=== PATIENT | female | born 1950 | race Caucasian/White ===

== ENCOUNTER 2017-10-30 00:35 | Emergency (ER) | payer MEDICARE, BC ==
[2017-10-30] MEDS ORDERED: Sodium Chloride 0.9% 10 ML Syringe FLUSH PRN (00:47)
[2017-10-30] MEDS ORDERED: Ondansetron 4 MG/2 ML SDV IVPUSH ONE (00:47)
[2017-10-30] MEDS ORDERED: Sodium Chloride 0.9% 1,000 ML IV ONE (00:47)
[2017-10-30] MEDS ORDERED: dimenhyDRINATE 50 MG Tab PO ONE (01:07)
[2017-10-30] MEDS ORDERED: Meclizine 25 MG Tab PO ONE (01:07)
[2017-10-30 01:36] LABS: CHLORIDE,CL 102 mmol/L (98-107); SODIUM,NA 136 mmol/L (136-145)
--- NOTE | 2017-10-30 01:44 | EDM.PDOC ---
ED HPI GENERAL MEDICAL PROBLEM - General Chief Complaint: General Stated Complaint: Dizziness, N/V, recent pneumonia Time Seen by Provider: 10/30/17 00:45 Source of Information: Reports: Patient History Limitations: Reports: No Limitations - History of Present Illness INITIAL COMMENTS - FREE TEXT/NARRATIVE: Patient presents with complaints of dizziness and possible dehydration. She no longer has the symptoms on presentation to the ED. She states she does have these spells on occasions. She has no complaints of headache, chest pain or pressure, SOB, abdominal pain, nausea or vomiting, no blood in urine or stool and is having regular voiding and bowel habits Onset: Today Duration: Intermittent shoulder, neck Pain Score (Numeric/FACES): 4 - Related Data Allergies Allergy/AdvReac Type Severity Reaction Status Date / Time codeine Allergy Cannot Verified 10/30/17 00:44 Remember iodine Allergy Cannot Verified 10/30/17 00:44 Remember Home Meds: Home Meds Calcium Citrate/Vitamin D3 [Calcium Citrate + D] 2 tab PO DAILY 10/30/17 [ History] Cetirizine [ZyrTEC] 10 mg PO DAILY 10/30/17 [History] Citalopram Hydrobromide [Celexa] 20 mg PO DAILY 10/30/17 [History] Fluticasone/Salmeterol [Advair 100-50] 1 puff INH BID 10/30/17 [History] Montelukast [Singulair] 10 mg PO DAILY 10/30/17 [History] Omeprazole 20 mg PO DAILY 10/30/17 [History] Ranitidine HCl [Ranitidine] 300 mg PO BEDTIME 10/30/17 [History] buPROPion [buPROPion XL] 150 mg PO BEDTIME 10/30/17 [History] ED ROS GENERAL - Review of Systems Review Of Systems: See Below Constitutional: Reports: No Symptoms HEENT: Reports: No Symptoms Respiratory: Reports: No Symptoms Cardiovascular: Reports: No Symptoms Endocrine: Reports: No Symptoms GI/Abdominal: Reports: No Symptoms : Reports: No Symptoms Musculoskeletal: Reports: No Symptoms Skin: Reports: No Symptoms Neurological: Reports: No Symptoms Psychiatric: Reports: No Symptoms Hematologic/Lymphatic: Reports: No Symptoms Immunologic: Reports: No Symptoms ED EXAM, GENERAL - Physical Exam Exam: See Below Exam Limited By: No Limitations General Appearance: Alert, WD/WN, No Apparent Distress Eye Exam: Bilateral Eye: EOMI, Normal Inspection, PERRL Ears: Normal External Exam, Normal Canal, Hearing Grossly Normal, Normal TMs Nose: Normal Inspection, Normal Mucosa, No Blood Throat/Mouth: Normal Inspection, Normal Lips, Normal Teeth, Normal Gums, Normal Oropharynx, Normal Voice, No Airway Compromise Head: Atraumatic, Normocephalic Neck: Normal Inspection, Supple, Non-Tender, Full Range of Motion Respiratory/Chest: No Respiratory Distress, Lungs Clear, Normal Breath Sounds, No Accessory Muscle Use, Chest Non-Tender Cardiovascular: Normal Peripheral Pulses, Regular Rate, Rhythm, No Edema, No Gallop, No JVD, No Murmur, No Rub GI/Abdominal: Normal Bowel Sounds, Soft, Non-Tender, No Organomegaly, No Distention, No Abnormal Bruit, No Mass Back Exam: Normal Inspection, Full Range of Motion, NT Extremities: Normal Inspection, Normal Range of Motion, Non-Tender, Normal Capillary Refill, No Pedal Edema Neurological: Alert, Oriented, CN II-XII Intact, Normal Cognition, Normal Gait, Normal Reflexes, No Motor/Sensory Deficits Psychiatric: Normal Affect, Anxious Skin Exam: Warm, Dry, Intact, Normal Color, No Rash Lymphatic: No Adenopathy Course - Vital Signs Last Recorded V/S: Last Vital Signs Temp 36.4 C 10/30/17 00:35 Pulse 62 10/30/17 02:25 Resp 16 10/30/17 02:25 BP 124/68 10/30/17 02:25 Pulse Ox 96 10/30/17 00:35 - Orders/Labs/Meds Labs: Laboratory Tests 10/30/17 10/30/17 Range/Units 00:55 00:55 WBC 4.4 (4.0-10.0) x10^3/uL RBC 4.66 (4.00-5.50) x10^6/uL Hgb 13.4 (12.0-16.0) g/dL Hct 41.1 (33.0-47.0) % MCV 88.2 (78.0-93.0) fL MCH 28.8 (26.0-32.0) pg MCHC 32.6 (32.0-36.0) g/dL RDW Coeff of Nadja 14.9 (10.0-15.0) % Plt Count 188 (130-400) x10^3/uL Add Manual Diff Yes Neutrophils % (Manual) 75 (50-80) % Band Neutrophils % 3 (0-6) % Lymphocytes % (Manual) 19 L (25-50) % Eosinophils % (Manual) 3 (0-4) % Platelet Estimate Adequate Sodium 136 (136-145) mmol/L Potassium 3.6 (3.5-5.1) mmol/L Chloride 102 (98-107) mmol/L Carbon Dioxide 23 (21-32) mmol/L BUN 20 H (7-18) mg/dL Creatinine 0.9 (0.55-1.02) mg/dL Est Cr Clr Drug Dosing 56.78 mL/min Estimated GFR (MDRD) > 60 Glucose 134 H (74-106) mg/dL Calcium 8.9 (8.5-10.1) mg/dL Corrected Calcium 9.70 (8.5-10.1) mg/dL Total Bilirubin 1.0 (0.2-1.0) mg/dL AST 40 H (15-37) U/L ALT 57 (14-59) U/L Alkaline Phosphatase 89 (46-116) U/L Total Protein 7.2 (6.4-8.2) g/dL Albumin 3.0 L (3.4-5.0) g/dL Globulin 4.2 Albumin/Globulin Ratio 0.71 Meds: Medications Discontinued Medications Generic Name Dose Route Start Last Admin Trade Name Freq PRN Reason Stop Dose Admin Dimenhydrinate 50 mg 10/30/17 01:07 10/30/17 01:15 Driminate PO 10/30/17 01:08 50 mg ONETIME ONE Administration Sodium Chloride 1,000 mls @ 999 mls/hr 10/30/17 00:47 10/30/17 00:55 Normal Saline IV 10/30/17 01:47 999 mls/hr ONETIME ONE Administration Meclizine HCl 25 mg 10/30/17 01:07 10/30/17 01:53 Antivert PO 10/30/17 01:08 25 mg ONETIME ONE Administration Ondansetron HCl 4 mg 10/30/17 00:47 10/30/17 01:00 Zofran IVPUSH 10/30/17 00:48 4 mg ONETIME ONE Administration Sodium Chloride 10 ml 10/30/17 00:47 Saline Flush FLUSH ASDIRECTED PRN Keep Vein Open Departure - Departure Time of Disposition: 03:30 Disposition: Home, Self-Care 01 Condition: Good Clinical Impression: Dizziness, Dehydration - Discharge Information Instructions: Dehydration, Adult, [id number], Dizziness, [id number] Referrals: PCP,Unobtain [Primary Care Provider] - Forms: ED Department Discharge Additional Instructions: Stay well hydrated Try to have some dramamine at home to take if you get more dizzy spells Follow up with your primary provider if you continue to have bouts of dizziness Please call us with any questions or concerns in the meantime - Problem List & Annotations (1) Dehydration SNOMED Code(s): 73538130 Code(s): E86.0 - DEHYDRATION Status: Acute Priority: Low (2) Dizziness SNOMED Code(s): 522506958 Code(s): R42 - DIZZINESS AND GIDDINESS Status: Acute Priority: Low - Problem List Review Problem List Initiated/Reviewed/Updated: Yes - Assessment/Plan Assessment:: dizziness dehydration Plan: Stay well hydrated Try to have some dramamine at home to take if you get more dizzy spells Follow up with your primary provider if you continue to have bouts of dizziness Please call us with any questions or concerns in the meantime
[2017-10-30 03:08] VITALS: BP 124/68
== END 2017-10-30 02:30 | disposition home or self-care (01) ==
LOC: VM.ED 00:35
DX: E86.0 Dehydration (principal); R42 Dizziness and giddiness; Z88.5 Allergy status to narcotic agent; Z91.048 Other nonmedicinal substance allergy status; Z79.899 Other long term (current) drug therapy
CPT/HCPCS: 36415; 80053; 85025; 96361; 96374; 99283-GF; 99284; A9270-GY; J2405; J7030

== ENCOUNTER 2018-02-22 12:19 | Emergency (ER) | payer MEDICARE, BC ==
--- NOTE | 2018-02-22 12:33 | EDM.PDOC ---
ED HPI GENERAL MEDICAL PROBLEM - General Chief Complaint: Eye Problems Stated Complaint: RIGHT RED EYE Time Seen by Provider: 02/22/18 12:23 Source of Information: Reports: Patient, RN, RN Notes Reviewed History Limitations: Reports: No Limitations - History of Present Illness INITIAL COMMENTS - FREE TEXT/NARRATIVE: Patient presents to the ED at [facility] complaining of a FB sensation to the right eye. Patient states she was at the park yesterday and thought maybe she "got something into my right eye." Patient denies any visual field disturbances. No previous right eye injury or trauma. Patient states she has a green/yellow drainage. She does complain of some right eye irritation. She has some swelling around the right eye. Onset Date: 02/21/18 - Related Data Allergies Allergy/AdvReac Type Severity Reaction Status Date / Time codeine Allergy Cannot Verified 10/30/17 00:44 Remember iodine Allergy Cannot Verified 10/30/17 00:44 Remember Home Meds: Home Meds Calcium Citrate/Vitamin D3 [Calcium Citrate + D] 2 tab PO DAILY 10/30/17 [ History] Cetirizine [ZyrTEC] 10 mg PO DAILY 10/30/17 [History] Citalopram Hydrobromide [Celexa] 20 mg PO DAILY 10/30/17 [History] Fluticasone/Salmeterol [Advair 100-50] 1 puff INH BID 10/30/17 [History] Montelukast [Singulair] 10 mg PO DAILY 10/30/17 [History] Omeprazole 20 mg PO DAILY 10/30/17 [History] Ranitidine HCl [Ranitidine] 300 mg PO BEDTIME 10/30/17 [History] buPROPion [buPROPion XL] 150 mg PO BEDTIME 10/30/17 [History] Tobramycin/Dexamethasone [Tobradex Eye Drops] 4 drop EYERT TID 7 Days #1 bottle 02/22/18 [Rx] Past Medical History Respiratory History: Reports: Asthma Gastrointestinal History: Reports: GERD Psychiatric History: Reports: Depression ED ROS GENERAL - Review of Systems Review Of Systems: See Below Constitutional: Denies: Fever, Chills, Weakness HEENT: Reports: Eye Discharge, Eye Pain. Denies: Vision Change Respiratory: Denies: Shortness of Breath, Cough GI/Abdominal: Denies: Nausea, Vomiting Skin: Reports: No Symptoms Neurological: Reports: No Symptoms. Denies: Dizziness, Headache ED EXAM GENERAL W FULL EYE - Physical Exam Exam: See Below Exam Limited By: No Limitations General Appearance: Alert, No Apparent Distress Eye Exam: Right Eye: Conjunctival Injection, Bilateral Eye: EOMI, PERRL Eyelids: Right: Erythema Conjunctiva & Sclera: Right: Discharge, Injected Cornea Exam: Bilateral: Normal Appearance Extraocular Movements: Bilateral: Intact Pupils: Normal Accommodation Pupillary Size: Bilateral: 3 mm Pupillary Reaction: Bilateral: Brisk Respiratory/Chest: No Respiratory Distress, Lungs Clear, Normal Breath Sounds GI/Abdominal: Normal Bowel Sounds, Soft, Non-Tender Neurological: Alert, Oriented Skin Exam: Warm, Dry, Intact, Normal Color Departure - Departure Time of Disposition: 12:33 Disposition: Home, Self-Care 01 Condition: Good Clinical Impression: Bacterial conjunctivitis of right eye - Discharge Information Prescriptions: Tobramycin/Dexamethasone [Tobradex Eye Drops] 4 drop EYERT TID 7 Days #1 bottle Instructions: Bacterial Conjunctivitis, Dexamethasone; Tobramycin eye suspension Forms: ED Department Discharge Additional Instructions: 1. Stay well hydrated and rest 2. Use drops as prescribed for the full coarse, even if symptoms are better 3. Continue to use a warm compress to the right eye 4. Avoid touching the right eye 5. Wash hands frequently 6. Follow up with your Primary as symptoms warrant 7. Call us with any questions or concerns - Assessment/Plan Assessment:: Acute bacterial conjunctivitis
[2018-02-22 13:15] VITALS: BP 136/68
== END 2018-02-22 12:45 | disposition home or self-care (01) ==
LOC: VM.ED 12:19
DX: H10.89 Other conjunctivitis (principal); K21.9 Gastro-esophageal reflux disease without esophagitis; F32.9 Major depressive disorder, single episode, unspecified; Z88.5 Allergy status to narcotic agent; Z91.048 Other nonmedicinal substance allergy status; Z79.899 Other long term (current) drug therapy
CPT/HCPCS: 99282

== ENCOUNTER 2021-07-12 15:49 | Emergency (ER) | payer MEDICARE, BC ==
--- NOTE | 2021-07-12 16:11 | EDM.PDOC ---
ED HPI GENERAL MEDICAL PROBLEM - General Chief Complaint: Laceration Stated Complaint: laceration Time Seen by Provider: 07/12/21 15:50 Source of Information: Reports: Patient History Limitations: Reports: No Limitations - History of Present Illness INITIAL COMMENTS - FREE TEXT/NARRATIVE: She comes in the emergency department concerns of a laceration to her right lower extremity. Patient was up stairs in the hospital trying to move closer to the bed and caught her leg on the side of the bed causing a skin tear. Patient states that she often gets skin tears and needs to have them evaluated and Steri-Stripped. Patient states that it happened suddenly. She denies any range of motion or CMS concerns. Bleeding was controlled prior to arrival to emergency department. Patient states she has no major concerns or complaints. Onset: Sudden Location: Reports: Lower Extremity, Right Quality: Reports: Throbbing Improves with: Reports: None Worsens with: Reports: None Associated Symptoms: Reports: No Other Symptoms - Related Data Allergies Allergy/AdvReac Type Severity Reaction Status Date / Time codeine Allergy Cannot Verified 02/22/18 13:05 Remember iodine Allergy Cannot Verified 02/22/18 13:05 Remember Home Meds: Home Meds Calcium Citrate/Vitamin D3 [Calcium Citrate + D] 2 tab PO DAILY 10/30/17 [History] Cetirizine [ZyrTEC] 10 mg PO DAILY 10/30/17 [History] Citalopram Hydrobromide [Celexa] 20 mg PO DAILY 10/30/17 [History] Fluticasone/Salmeterol [Advair 100-50] 1 puff INH BID 10/30/17 [History] Montelukast [Singulair] 10 mg PO DAILY 10/30/17 [History] Omeprazole 20 mg PO DAILY 10/30/17 [History] Ranitidine HCl [Ranitidine] 300 mg PO BEDTIME 10/30/17 [History] buPROPion [buPROPion XL] 150 mg PO BEDTIME 10/30/17 [History] Tobramycin/Dexamethasone [Tobradex Eye Drops] 4 drop EYERT TID 7 Days #1 bottle 02/22/18 [Rx] Past Medical History Respiratory History: Reports: Asthma Gastrointestinal History: Reports: GERD Psychiatric History: Reports: Depression ED ROS GENERAL - Review of Systems Review Of Systems: Comprehensive ROS is negative, except as noted in HPI. Constitutional: Reports: No Symptoms HEENT: Reports: No Symptoms Respiratory: Reports: No Symptoms Cardiovascular: Reports: No Symptoms Endocrine: Reports: No Symptoms GI/Abdominal: Reports: No Symptoms : Reports: No Symptoms Musculoskeletal: Reports: No Symptoms Neurological: Reports: No Symptoms Psychiatric: Reports: No Symptoms Hematologic/Lymphatic: Reports: No Symptoms Immunologic: Reports: No Symptoms ED EXAM, GENERAL - Physical Exam Exam: See Below Exam Limited By: No Limitations General Appearance: Alert, WD/WN, No Apparent Distress Head: Atraumatic, Normocephalic Neck: Normal Inspection, Non-Tender Respiratory/Chest: No Respiratory Distress, Lungs Clear, Normal Breath Sounds, Chest Non-Tender Cardiovascular: Normal Peripheral Pulses, Regular Rate, Rhythm, No Rub Back Exam: Normal Inspection, Full Range of Motion Extremities: Normal Inspection, Normal Range of Motion, Normal Capillary Refill Neurological: Alert, Oriented, Normal Cognition, Normal Gait Psychiatric: Normal Affect, Normal Mood Skin Exam: Warm, Dry ED GENERAL MEDICAL PROCEDURES - Laceration/Wound Repair Right Leg Lac/wound length in cm: 6 Appearance: Superficial Distal NVT: Neuro & Vascular Intact, No Tendon Injury Closed with: Wound Adhesive, Steri-Strips Sterile Dressing Applied: Nurse Tetanus Status Addressed: Yes Complications: No Departure - Departure Time of Disposition: 16:10 Disposition: Home, Self-Care 01 Condition: Good Clinical Impression: Skin tear - Discharge Information *PRESCRIPTION DRUG MONITORING PROGRAM REVIEWED*: Not Applicable *COPY OF PRESCRIPTION DRUG MONITORING REPORT IN PATIENT JOSE: Not Applicable Instructions: Skin Tear, [id number] Referrals: PCP,Unknown [Primary Care Provider] - Forms: ED Department Discharge Additional Instructions: 1. Rest 2. Keep the area clean and dry 3. Can use tylenol and ibuprofen as needed for pain and discomfort 4. Diet as tolerated 5. Activity as tolerated 6. Elevated the injured area above the level of the heart to decrease swelling and discomfort if applicable 7. Can use ice 3-4 times a day at 20-minute intervals to help with any swelling and discomfort 8. Follow-up with your primary care provider symptoms continue or to progress 9. Discharge information has been provided regarding your injury and wound care has been provided 10. Avoid an public pools or hot tubes until wound is healed. - Assessment/Plan Assessment:: 1. skin tear Plan: 1. steri strip applied to area 2. wound area cleansed 3. dressing applied to wound 4. Education regarding splinting, activity, [id number] medications, and follow-up care provided. 5. All questions and concerns addressed with the patient prior to discharge
[2021-07-12 16:40] VITALS: BP 157/79; PULSE 95
== END 2021-07-12 16:15 | disposition home or self-care (01) ==
LOC: VM.ED 15:49
DX: S81.811A Laceration without foreign body, right lower leg, initial encounter (principal); K21.9 Gastro-esophageal reflux disease without esophagitis; Z88.5 Allergy status to narcotic agent; Z88.8 Allergy status to other drugs, medicaments and biological substances; Z79.899 Other long term (current) drug therapy; W22.8XXA Striking against or struck by other objects, initial encounter
CPT/HCPCS: 12002; 99282-25; 99283

== ENCOUNTER 2023-08-08 12:50 | Emergency (ER) | payer MEDICARE, BC ==
[2023-08-08 13:13] VITALS: BP 155/56; PULSE 73
== END 2023-08-08 14:48 | disposition home or self-care (01) ==
LOC: VM.ED 12:50
DX: S01.01XA Laceration without foreign body of scalp, initial encounter (principal); S93.402A Sprain of unspecified ligament of left ankle, initial encounter; M25.562 Pain in left knee; K21.9 Gastro-esophageal reflux disease without esophagitis; J45.909 Unspecified asthma, uncomplicated; Z88.5 Allergy status to narcotic agent; Z79.899 Other long term (current) drug therapy; Z91.018 Allergy to other foods; W23.0XXA Caught, crushed, jammed, or pinched between moving objects, initial encounter
CPT/HCPCS: 12001; 73562-LT; 73610-LT; 99284